=== PATIENT | male | born 1980 | race Asian ===

== ENCOUNTER 2025-01-26 03:23 | Emergency (ER) | payer OTHER ==
[~2025-01-26] VITALS: Ht 162.6 cm; Wt 81.8 kg
[2025-01-26 03:24] VITALS: TEMP 98.1
[2025-01-26 04:15] VITALS: BP 148/88; PULSE 85; RESP 17; O2SAT 99
== END 2025-01-26 04:38 | disposition home or self-care (01) ==
LOC: EMS 03:39
DX: S60.011A Contusion of right thumb without damage to nail, initial encounter (principal); I10 Essential (primary) hypertension; Y08.89XA Assault by other specified means, initial encounter; Y93.89 Activity, other specified; Y92.230 Patient room in hospital as the place of occurrence of the external cause; Y99.0 Civilian activity done for income or pay
CPT/HCPCS: 99283